=== PATIENT | female | born 1950 | race Caucasian/White ===

== ENCOUNTER 2020-02-01 09:00 | Outpatient (RCR) | payer MEDICARE, OTHER, SELFPAY ==
--- NOTE | 2020-02-27 10:20 | MHC.PT.DC ---
[facility] [place] [facility] [place] [facility] [place] [facility] [address] Anna White 140 [facility] [phone] F: [phone] F: [phone] F: [phone] F: [phone] Physical Therapy Discharge Report Diagnosis: R knee pain and weakness Date of Surgery: Date of Evaluation: 12/26/19 Date of Discharge: 02/01/20 Treatments to Date: 6 Cancellations to Date: 1 No Shows to Date: 0 Discharge Status: Achieved Goals Improved Function Independent with HEP Discharge Summary: Patient reporting I in HEP and feeling better, states that she feels like she can continue on her own at this time. She has an HEP to continue and feels confident in being able to perform safely. DC to HEP at this time. Electronically signed by: Shruthi Leonard PT Please sign and return to therapist. Thank you for your referral.
== END 2020-02-27 10:39 | disposition home or self-care (01) ==
LOC: HO.PTCHIC 09:00
PROVIDERS: PCP Internal Medicine; Visit Provider Internal Medicine
DX: M89.49 Other hypertrophic osteoarthropathy, multiple sites (principal); M1A.09X0 Idiopathic chronic gout, multiple sites, without tophus (tophi); M79.7 Fibromyalgia
CPT/HCPCS: 97110; 97140

== ENCOUNTER 2020-02-29 07:37 | Outpatient (REF) | payer MEDICARE, OTHER, SELFPAY ==
[2020-02-29 11:54] LABS: Albumin Level 3.8 g/dL (3.5-5.0); Anion Gap 13 (12-20); Blood Urea Nitrogen 29 mg/dL (9-16); Calcium 8.4 mg/dL (8.4-10.2); Carbon Dioxide 27 mmol/L (22-29); Chloride 103 mmol/L (96-108); Estimated Glomerular Filt Rate 40; Magnesium 1.7 mg/dL (1.6-2.6); Phosphorus 3.9 mg/dL (2.7-4.5); Potassium 4.4 mmol/l (3.3-5.1); Sodium 139 mmol/L (135-145)
== END 2020-02-29 07:38 | disposition home or self-care (01) ==
LOC: HO.HMGCLDS 07:37
PROVIDERS: PCP Internal Medicine; Visit Provider Internal Medicine Hypertension Specialist
DX: I12.9 Hypertensive chronic kidney disease with stage 1 through stage 4 chronic kidney disease, or unspecified chronic kidney disease (principal); N18.30 Chronic kidney disease, stage 3 unspecified; N25.81 Secondary hyperparathyroidism of renal origin; E83.42 Hypomagnesemia
CPT/HCPCS: 80051; 82040; 82310; 82565; 83735; 84100; 84520

== ENCOUNTER → 2020-03-18 13:30 | Outpatient (BNVA) | payer MEDICARE, OTHER, SELFPAY | PROVIDERS: PCP Internal Medicine; Visit Provider Internal Medicine | DX: Z76.89 Persons encountering health services in other specified circumstances (principal) ==

== ENCOUNTER 2020-03-18 14:40 | Outpatient (REF) | payer MEDICARE, OTHER, SELFPAY ==
--- NOTE | 2020-03-18 15:51 | XR_ITS ---
EXAMINATION: XR CHEST CLINICAL INFORMATION: History of diabetes. Hyperglycemia. COMPARISON: Previous chest x-ray most recent 03/2017 TECHNIQUE: 2 views of the chest were obtained. FINDINGS: No significant abnormality is noted involving the heart, lungs, mediastinum, bony thorax or soft tissues. XR/XR chest 2V IMPRESSION: Unremarkable examination.
--- NOTE | 2020-03-18 17:32 | PFT_ITS ---
INDICATION: Dyspnea. SPIROMETRY: The FEV1 to FVC 85% with an FEV1 of 1.72 L, which is 87% predicted, an FVC of 2.03 L, which is 78% predicted. No significant response to bronchodilators noted. Maximum voluntary ventilation 99% predicted. LUNG VOLUMES: Total lung capacity 75% predicted with an expiratory reserve volume of 39% predicted. DIFFUSION CAPACITY: DLCO 51% predicted. COMPARISONS: PFTs in 2018. INTERPRETATION: No definitive obstructive ventilatory defect. No significant response to bronchodilators noted. However, the patient does have a mild restrictive ventilatory defect in addition to that the expiratory reserve volume is decreased to 39%, likely from an elevated BMI. The patient does have moderate to severe diffusion impairment. When compared to 2018, the patient has a significant decrease in the FVC, a trend decrease in the FEV1. No significant change in the total lung capacity and a trend decrease in the diffusion capacity. Clinical correlation is warranted. MD MARCO Raphael/JESENIA / [id number]
== END 2020-03-18 14:41 | disposition home or self-care (01) ==
LOC: HO.RESP 14:40
PROVIDERS: Visit Provider Internal Medicine
DX: J98.4 Other disorders of lung (principal); E10.65 Type 1 diabetes mellitus with hyperglycemia; R06.02 Shortness of breath
CPT/HCPCS: 71046; 94060; 94727; 94729; 99202

== ENCOUNTER → 2020-03-27 11:34 | Outpatient (BNVA) | payer MEDICARE, OTHER, SELFPAY | PROVIDERS: PCP Internal Medicine; Referring Provider Internal Medicine; Visit Provider Nurse Practitioner Gerontology | DX: E10.22 Type 1 diabetes mellitus with diabetic chronic kidney disease (principal); E10.65 Type 1 diabetes mellitus with hyperglycemia; I12.9 Hypertensive chronic kidney disease with stage 1 through stage 4 chronic kidney disease, or unspecified chronic kidney disease; N18.30 Chronic kidney disease, stage 3 unspecified; E78.5 Hyperlipidemia, unspecified; E03.9 Hypothyroidism, unspecified; Z79.82 Long term (current) use of aspirin; Z79.899 Other long term (current) drug therapy; Z79.4 Long term (current) use of insulin | CPT/HCPCS: Q3014 ==

== ENCOUNTER → 2020-04-23 13:28 | Outpatient (BNVA) | payer MEDICARE, OTHER, SELFPAY | PROVIDERS: PCP Internal Medicine; Visit Provider Internal Medicine | DX: R06.00 Dyspnea, unspecified (principal); J98.4 Other disorders of lung; G47.33 Obstructive sleep apnea (adult) (pediatric) | CPT/HCPCS: 99212 ==

== ENCOUNTER 2020-06-20 12:26 | Outpatient (REF) | payer MEDICARE, OTHER, SELFPAY ==
--- NOTE | ~2020-06-20 | MM_ITS ---
EXAMINATION: MM DIAGNOSTIC DIGITAL BREAST TOMOSYNTHESIS, BILATERAL US DIAGNOSTIC ULTRASOUND BREAST, RIGHT CLINICAL INFORMATION: Due for yearly. Probable benign focal asymmetric nodule central 6:00 right breast. The lifetime risk of breast cancer based on the Tyrer-Cuzick Model is 4%. COMPARISON: Mammography: 03/30/2019, 03/08/2019 (BI-RADS 0), 06/17/2016, 12/04/2014; TECHNIQUE: Digital breast tomosynthesis is performed in both the craniocaudal and mediolateral oblique views along with computer-aided detection (CAD). Synthesized 2D images are generated from the tomosynthesis. Additional bilateral MLO views are obtained. Ultrasound right breast is targeted to the lower aspect. Grayscale imaging and color Doppler are performed without and with harmonics. FINDINGS: There are scattered areas of fibroglandular density (ACR BI-RADS breast composition Category b). There is fibronodular parenchymal pattern. The left breast shows no interval mass or architectural abnormality. There are scattered bilateral benign round coarse calcifications. Biopsy clip marker present right mid upper outer quadrant. The nodule for follow-up central mid 6:00 right breast is similar in size to prior exam. Margins are lobulated. The remainder of the right breast in the bilateral axilla and skin contours are unremarkable. Ultrasound right breast again shows irregular lobulated hypoechoic mass central 6:00 right breast approximately 1 cm in greatest dimension. There is no associated color flow. There is no increasing size. No strong increased through-transmission of sound. No shadowing. Results are discussed with the patient at time of visit. Given the shape of the lesion for follow-up, ultrasound-guided core sampling is suggested to confirm benignity. Suspect group of microcysts, possibly apocrine metaplasia or adenosis. Patient is in agreement with tissue sampling. Results and recommendation called to medical economics consultant (Danae) for Dr. Johnson on 06/20/2020. MM/MM tomosynthesis diagnostic BI IMPRESSION: 1. Right: Although the nodule for follow-up central 6:00 position is unchanged in size, margins are irregular/lobulated. There is no strong increased through-transmission of sound. 2. Left: No mammographic evidence of malignancy. ASSESSMENT: BI-RADS 4: Suspicious (subcategory 4A: Low suspicion for malignancy) RECOMMENDATION: Ultrasound-guided core biopsy right breast. This patient's information was entered into a reminder system with a target due date for their next mammogram.
== END 2020-06-20 12:27 | disposition home or self-care (01) ==
LOC: HO.MAMMO 12:26
PROVIDERS: PCP Internal Medicine; Visit Provider Internal Medicine
DX: R92.2 Inconclusive mammogram (principal)
CPT/HCPCS: 76642; 77062; 77066